=== PATIENT | male | born 1995 | race African-American/Black ===

== ENCOUNTER 2024-01-08 17:24 | Emergency (ER) | payer MEDICAID ==
[~2024-01-08] VITALS: Ht 170.2 cm; Wt 59.0 kg
[2024-01-08 17:26] VITALS: TEMP 98.2; O2SAT 100
[2024-01-08 18:57] LABS: CLARITY URINE CLEAR (CLEAR); COLOR URINE DARK YELLOW (YELLOW); GLUCOSE URINE NEGATIVE (NEGATIVE); KETONES URINE NEGATIVE (NEGATIVE); LEUKOCYTE ESTERASE URINE NEGATIVE (NEGATIVE); NITRITE URINE NEGATIVE (NEGATIVE); OCCULT BLOOD URINE NEGATIVE (NEGATIVE); PROTEIN URINE NEGATIVE (NEGATIVE); SPECIFIC GRAVITY URINE 1.067 (1.005-1.030)
[2024-01-08 19:19] LABS: *AMPHETAMINES SCREEN URINE NEGATIVE (NEGATIVE); *BARBITURATES SCREEN URINE NEGATIVE (NEGATIVE); *BENZODIAZEPINES SCREEN URINE NEGATIVE (NEGATIVE); *COCAINE SCREEN URINE NEGATIVE (NEGATIVE); CANNABINOID URINE SCREEN PRESUMPTIVE POSITIVE (NEGATIVE); ECSTASY MDMA SCREEN URINE NEGATIVE (NEGATIVE); METHADONE URINE SCREEN Neg (NEGATIVE); OPIATES URINE SCREEN NEGATIVE (NEGATIVE); PHENCYCLIDINE URINE SCREEN NEGATIVE (NEGATIVE)
[2024-01-08 20:00] VITALS: BP 121/79; PULSE 67; RESP 16
[2024-01-08] MEDS ORDERED: IOHEXOL-350 100 ML BOTTLE ONE (23:09)
== END 2024-01-08 22:25 | disposition home or self-care (01) ==
LOC: ER 17:24
DX: S09.90XA Unspecified injury of head, initial encounter (principal); Z98.890 Other specified postprocedural states; W22.8XXA Striking against or struck by other objects, initial encounter; Y93.89 Activity, other specified; Y92.89 Other specified places as the place of occurrence of the external cause; Y99.8 Other external cause status
CPT/HCPCS: 80305; 81003; 82962; 71045; 70496; 70498; 70450; 93005; 99291; Q9967; Z7610